=== PATIENT | male | born 1985 | race Caucasian/White ===

== ENCOUNTER → 2017-01-28 | Outpatient (CLI) | payer OTHER ==
[2017-01-28 12:25] LABS: BASO % 0.5 %; BASO ABS # 0.02 K/uL (0-0.2); COMPLETE YES; EOS % 0.9 %; HEMATOCRIT 42.3 % (42-52); IG% 0.2 %; LYMPH % 43.4 %; MEAN CELL VOLUME 85.1 fL (80-100); MONO % 6.8 %; NEUT % 48.2 %; PLATELET COUNT 214 K/uL (130-400); RED BLOOD COUNT 4.97 M/uL (4.7-6.1); WHITE BLOOD COUNT 4.38 K/uL (4.8-10.8)
[2017-01-28 12:29] LABS: MANUAL MICROSCOPIC REQUIRED? NO; REVIEW REQ? NO; URINE APPEARANCE CLEAR (CLEAR); URINE BILIRUBIN NEG (NEG); URINE COLOR YELLOW; URINE EPITHELIAL CELL AUTO 0-5 /lpf (0-5); URINE NITRITE NEG (NEG); URINE PH 5.5 (4.5-7.5); URINE SPECIFIC GRAVITY 1.017 (1.000-1.030); UROBILINOGEN NEG (NEG); ZZUR CULT IF INDIC CLEAN CATCH NO
[2017-01-28 15:08] LABS: CALCIUM 9.3 mg/dl (8.5-10.1)
[2017-01-28 15:12] LABS: ALT/SGPT 40 U/L (12-78); AST/SGOT 26 U/L (15-37); BLOOD UREA NITROGEN 17 mg/dl (7-18); BUN/CREATININE RATIO 12.7 (10-20); CARBON DIOXIDE 24 mmol/L (21-32); CHLORIDE 106 mmol/L (98-107); CHOLESTEROL 158 mg/dl (0-200); GLUCOSE 89 mg/dl (70-99); POTASSIUM 3.9 mmol/L (3.5-5.1); SODIUM 139 mmol/L (136-145); TRIGLYCERIDES 102 mg/dl (0-150); VERY LOW DENSITY LIPOPROT CALC 20 mg/dl
[2017-01-28 15:22] LABS: ALB/GLOB RATIO 1.3 (0.9-2); ALKALINE PHOSPHATASE 61 U/L (45-117); CHOLESTEROL/HDL RATIO 2.7; HDL CHOLESTEROL 58 mg/dl; LDL CHOLESTEROL CALCULATED 80 mg/dl
== END | disposition home or self-care (01) ==
LOC: C.LAB1850 11:20
PROVIDERS: ATTEND Internal Medicine
DX: Z13.6 Encounter for screening for cardiovascular disorders (principal); R00.2 Palpitations

== ENCOUNTER → 2017-03-13 | Outpatient (CLI) | payer OTHER ==
[2017-03-13 13:10] LABS: BASO % 0.4 %; BASO ABS # 0.02 K/uL (0-0.2); COMPLETE YES; EOS % 1.8 %; HEMATOCRIT 43.2 % (42-52); IG% 0.4 %; LYMPH % 39.9 %; MEAN CELL VOLUME 86.2 fL (80-100); MEAN CORPUSCULAR HEMOGLOBIN 29.3 pg (25-34); MEAN PLATELET VOLUME 10.1 fL (7.4-10.4); MONO % 7.4 %; NEUT % 50.1 %; PLATELET COUNT 213 K/uL (130-400); RED BLOOD COUNT 5.01 M/uL (4.7-6.1); WHITE BLOOD COUNT 5.01 K/uL (4.8-10.8)
== END | disposition home or self-care (01) ==
LOC: C.LAB1850 11:47
PROVIDERS: ATTEND Internal Medicine
DX: R00.2 Palpitations (principal)